=== PATIENT | male | born 1965 | race Caucasian/White ===

== ENCOUNTER 2017-02-19 11:55 | Emergency (ER) | payer OTHER ==
[~2017-02-19] VITALS: Ht 172.7 cm; Wt 154.2 kg
[2017-02-19 12:05] VITALS: BP 15/91
[2017-02-19] MEDS ORDERED: IBUPROFEN 600 MG TABLET PO ONE ×2 (12:44→13:00)
--- NOTE | 2017-02-19 12:52 | NUR ---
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
== END 2017-02-19 13:53 | disposition home or self-care (01) ==
LOC: ER 12:00
DX: S93.402A Sprain of unspecified ligament of left ankle, initial encounter (principal); I10 Essential (primary) hypertension; W18.40XA Slipping, tripping and stumbling without falling, unspecified, initial encounter; Y93.01 Activity, walking, marching and hiking; Y92.89 Other specified places as the place of occurrence of the external cause; Y99.9 Unspecified external cause status
CPT/HCPCS: 73610-TC; A4606; Z7610